=== PATIENT | male | born 1950 | race Caucasian/White ===

== ENCOUNTER 2017-12-18 14:05 | Day surgery (SDC) | payer MEDICARE, OTHER ==
[~2017-12-18] VITALS: Ht 175.3 cm; Wt 75.8 kg
[~2017-12-18 14:05] MED LIST: ACYC800; ADDERALL; ASPI325; ATOR10; CRUTCH2 USE; CYCL10; GEMF600; LOSA25; METH10; METO10; METO25ER; NITR.4SL; OXYB5; OXYC5; Omeprazole20 M1; RANI150; RANO500T; SIMV5; TERA2; TRAM50
[2017-12-18] MEDS ORDERED: CARV25 PO (14:50)
== END 2017-12-18 16:06 | disposition home or self-care (01) ==
LOC: ORSCSDS 14:05
PROVIDERS: Internal Medicine Gastroenterology
PROC: 0DBH8ZX Excision of Cecum, Via Natural or Artificial Opening Endoscopic, Diagnostic (ICD-10-PCS; principal; 2017-12-18 15:30)
DX: K62.5 Hemorrhage of anus and rectum (principal); D12.0 Benign neoplasm of cecum; K64.8 Other hemorrhoids; Q27.33 Arteriovenous malformation of digestive system vessel; K57.30 Diverticulosis of large intestine without perforation or abscess without bleeding; Z86.010 Personal history of colon polyps; Z87.891 Personal history of nicotine dependence; J44.9 Chronic obstructive pulmonary disease, unspecified; I25.10 Atherosclerotic heart disease of native coronary artery without angina pectoris; Z79.82 Long term (current) use of aspirin; Z79.899 Other long term (current) drug therapy
CPT/HCPCS: 88305; J7120

== ENCOUNTER 2022-12-27 12:29 | Day surgery (SDC) | payer MEDICARE, OTHER ==
[~2022-12-27] VITALS: Ht 149.9 cm; Wt 66.5 kg
[~2022-12-27 12:29] MED LIST changes: +CARV25 PO
[2022-12-27] MEDS ORDERED: DOCU100 (12:54)
[2022-12-27] MEDS ORDERED: MAGCIT300 (12:55)
[2022-12-27] MEDS ORDERED: CENTRUM SILVER1 EAC2 (12:55)
[2022-12-27] MEDS ORDERED: NIAC500 (12:56)
[2022-12-27] MEDS ORDERED: UBID100 (12:56)
[2022-12-27] MEDS ORDERED: IRON18 MG (12:56)
[2022-12-27] MEDS ORDERED: GARLIC200 MG (12:56)
== END 2022-12-27 15:22 | disposition home or self-care (01) ==
LOC: ORSCSDS 12:29
PROVIDERS: Internal Medicine Gastroenterology
PROC: 0DBP8ZX Excision of Rectum, Via Natural or Artificial Opening Endoscopic, Diagnostic (ICD-10-PCS; principal; 2022-12-27 13:45)
PROC: 0DBK8ZX Excision of Ascending Colon, Via Natural or Artificial Opening Endoscopic, Diagnostic (ICD-10-PCS; principal; 2022-12-27 13:45)
DX: R10.32 Left lower quadrant pain (principal); K59.00 Constipation, unspecified; Z86.010 Personal history of colon polyps; D12.2 Benign neoplasm of ascending colon; D12.8 Benign neoplasm of rectum; K62.7 Radiation proctitis; I10 Essential (primary) hypertension; I25.10 Atherosclerotic heart disease of native coronary artery without angina pectoris; I25.2 Old myocardial infarction; Z95.1 Presence of aortocoronary bypass graft; E78.5 Hyperlipidemia, unspecified; J44.9 Chronic obstructive pulmonary disease, unspecified; E03.9 Hypothyroidism, unspecified; Z79.82 Long term (current) use of aspirin; F17.210 Nicotine dependence, cigarettes, uncomplicated; Z79.899 Other long term (current) drug therapy
CPT/HCPCS: 88305; J2704; J7120

== ENCOUNTER 2025-06-10 12:57 | Day surgery (SDC) | payer OTHER ==
[~2025-06-10] VITALS: Ht 175.3 cm; Wt 65.2 kg
[~2025-06-10 12:57] MED LIST changes: +Balanced Salt Epinephrine Irrigation Solution 500 mL IR SCH; +CENTRUM SILVER1 EAC2; +DOCU100; +GARLIC200 MG; +IRON18 MG; +MAGCIT300; +Moxifloxacin HCL 0.5 MG/0.1 ML 0.4MLSYR RIGHTEYE SCH; +NIAC500; +Ondansetron 4 MG SoluTab MM PRN; +PHENYLEPHRINE\\TROPICAMIDE\\TETRACAINE OPHTHALMIC DILATING SOLN RIGHTEYE PRN; +Povidone-Iodine 450 DROP/30 ML Solution ONE; +Povidone-Iodine 450 DROP/30 ML Solution RIGHTEYE SCH; +Tetracaine HCl/Pf 0.5% Opth Soln 4 ml ONE; +UBID100; +diazePAM 5 MG,diazePAM 2 MG PO SCH
[2025-06-10] MEDS ORDERED: LOSA50 PO (13:27)
[2025-06-10] MEDS ORDERED: ALEN10 PO (13:29)
--- NOTE | 2025-06-10 13:52 | NUR ---
06/10/25 1353 Stephani Meyers VITALS AT 1352 BP: 112/56 P: 63 O2: 95% WITH 8 LITERS OF BLOW BY OXYGEN
[2025-06-10 14:22] VITALS: BP 125/59
--- NOTE | 2025-06-10 14:35 | NUR ---
06/10/25 [id number] Rhiannon Kan BROUGHT TO BEDSIDE
== END 2025-06-10 14:40 | disposition home or self-care (01) ==
LOC: ORSCSDS 12:57
PROVIDERS: Student in an Organized Health Care Education/Training Program
PROC: 08RJ3JZ Replacement of Right Lens with Synthetic Substitute, Percutaneous Approach (ICD-10-PCS; principal; 2025-06-10 14:30)
DX: H25.811 Combined forms of age-related cataract, right eye (principal); Z96.1 Presence of intraocular lens; H21.81 Floppy iris syndrome; H52.201 Unspecified astigmatism, right eye; H35.3132 Nonexudative age-related macular degeneration, bilateral, intermediate dry stage; I25.2 Old myocardial infarction; Z79.899 Other long term (current) drug therapy
CPT/HCPCS: A9270; V2632